=== PATIENT | male | born 1995 ===

== ENCOUNTER 2018-05-28 10:54 | Emergency (ER) | payer OTHER ==
[2018-05-28 11:38] VITALS: BP 124/71; PULSE 67; RESP 16; TEMP 98.3; O2SAT 99
--- NOTE | 2018-05-28 12:06 | ED PDOC ---
Arrival/HPI - General Chief Complaint: ENT Problem Time Seen by Provider: 05/28/18 11:05 Historian: Patient - History of Present Illness Narrative History of Present Illness (Text): 05/28/18 12:06 22 year old male, with no significant past medical history, who presents to the emergency department complaining of sore throat for the past 2 weeks. Patient states he has pain when he swallows. He denies any fevers, chills, headache, dizziness, chest pain, shortness of breath, dyspnea on exertion, cough, abdominal pain, nausea, vomiting, diarrhea, back pain, neck pain, or any other complaints. Time/Duration: < month (2 weeks) Symptom Onset: Gradual Symptom Course: Unchanged Activities at Onset: Light Context: Home Past Medical History - Provider Review Nursing Documentation Reviewed: Yes - Psychiatric Hx Psychophysiologic Disorder: No Hx Substance Use: No - Surgical History Other/Comment: CIRCUMCISION Family/Social History - Physician Review Nursing Documentation Reviewed: Yes Family/Social History: No Known Family HX Smoking Status: Never Smoked Hx Alcohol Use: No Hx Substance Use: No Allergies/Home Meds Allergies/Adverse Reactions: Allergies No Known Allergies Allergy (Verified 05/28/18 11:34) Home Medications: Home Meds Medication Instructions Recorded Confirmed No Known Home Med 05/28/18 05/28/18 Review of Systems - Physician Review All systems were reviewed & negative as marked: Yes - Review of Systems Constitutional: absent: Fevers ENT: Sore Throat Respiratory: absent: SOB Cardiovascular: absent: Chest Pain Gastrointestinal: absent: Abdominal Pain, Diarrhea, Nausea, Vomiting Musculoskeletal: absent: Back Pain, Neck Pain Neurological: absent: Headache, Dizziness Physical Exam - Physical Exam Narrative Physical Exam (Text): 05/28/18 12:05 Constitutional: No acute distress. Head: Normocephalic. Atraumatic. Eyes: PERRL. ENT: Moist mucous membranes. uvula midline. right peritonsillar abscess. Neck: Supple. Cardiovascular: Regular rate. Chest: No tenderness. Respiratory: Clear to auscultation bilaterally. GI: Soft. Nontender. Nondistended. Back: No CVA tenderness. Musculoskeletal: No tenderness or swelling of extremities. Skin: No rash. Neurologic: Alert, no focal deficit. Vital Signs Reviewed: Yes Vital Signs Temp Pulse Resp BP Pulse Ox 05/28/18 11:34 98.3 F 67 16 124/71 99 Temperature: Afebrile Blood Pressure: Normal Pulse: Regular Respiratory Rate: Normal Appearance: Positive for: Well-Appearing, Non-Toxic, Comfortable Pain Distress: None Mental Status: Positive for: Alert and Oriented X 3 Medical Decision Making ED Course and Treatment: 05/28/18 12:05 Impression: 22 year old male who presents to the emergency department complaining of sore throat. Plan: -- Reassess and disposition Progress Notes: Case discussed with ENT who has agreed to see patient in his office immediately from ED to drain the abscess. Directions given to patient. 3 blocks walking from ED.06/03 13:05 - Scribe Statement The provider has reviewed the documentation as recorded by the Macieibeloy Rouse Provider Scribe Attestation: All medical record entries made by the Scribe were at my direction and personally dictated by me. I have reviewed the chart and agree that the record accurately reflects my personal performance of the history, physical exam, medical decision making, and the department course for this patient. I have also personally directed, reviewed, and agree with the discharge instructions and disposition. Disposition/Present on Arrival - Present on Arrival Any Indicators Present on Arrival: No History of DVT/PE: No History of Uncontrolled Diabetes: No Urinary Catheter: No History of Decub. Ulcer: No History Surgical Site Infection Following: None - Disposition Have Diagnosis and Disposition been Completed?: Yes Diagnosis: Peritonsillar abscess Disposition: HOME/ ROUTINE Disposition Time: 11:15 Patient Plan: Discharge Patient Problems: Current Active Problems Problem Status Onset Peritonsillar abscess Acute Condition: STABLE Discharge Instructions (ExitCare): Peritonsillar Abscess, Adult Additional Instructions: Go directly to ENT office at [address] [place] [address] in [place], [place]. Referrals: Dougie Del Rosario DO [[facility]] - Follow up with primary Forms: [employer] (Turkish)
== END 2018-05-28 12:15 | disposition home or self-care (01) ==
LOC: ED 10:54
DX: J36 Peritonsillar abscess (principal)